=== PATIENT | male | born 1960 | race Caucasian/White ===

== ENCOUNTER → 2016-09-18 | Outpatient (CLI) | payer BC ==
[~2016-09-18] MED LIST: AMLODIPINE BESY10 MG PO; CIPRO PO; FLOMAX0.4 M1 PO; IBUPROFEN800 MG PO; LORTAB 5/500 TA1 TA1 PO; VIAGRA PO; ZOFRAN ODT4 MG PO
--- NOTE | ~2016-09-18 | CT71 ---
[facility] A Service of [facility] RADIOLOGY TEXT RESULTS PATIENT: IRVING ROSAS LOCATION: [facility] : 60 UNIT #: [id number] AGE: [address]: BLAISE VALDEZ MD SEX: M ORDER DR: [id number] [facility] [address] [place], [place] [address] [id number] O MR#: [id number] Acc #: [id number] NAME: IRVING ROSAS : 1960 SEX: M STUDY DATE/TIME: 09/18/2016 8:04 UNIT: [facility] ROOM: STUDY DESCRIPTION: CT Head Wo Contrast Attending Physician: Blaise Valdez M.D. Referring Physician: Blaise Valdez M.D. Ordering Physician: Blaise Valdez M.D. Primary Care Physician: Blaise Valdez M.D. MEDICAL IMAGING REPORT This report is preliminary unless electronic signature is present EXAM Head CT no contrast, 09/18/2016 HISTORY 6-day history of left facial and thumb numbness. PROCEDURE Axial unenhanced head CT. This CT exam was performed with one or more of the following radiation dose reduction techniques: automatic exposure control, adjustment of mA and/or kV according to patient size, and iterative reconstruction. COMPARISON None FINDINGS Axial noncontrast images were obtained from the skull base to the vertex. Ventricular size and configuration are normal. There is no evidence of acute infarct or hemorrhage. There are no extra-axial fluid collections. No mass lesion or mass effect is seen. There are no skull fractures. IMPRESSION Normal noncontrast head CT. Dictated by... William Randall M.D. THIS IS AN ELECTRONICALLY VERIFIED REPORT William Randall M.D. at 09/20/2016 1:22 PM ANDER/han TD: 09/18/2016 12:30 [facility] A Service of [facility] RADIOLOGY TEXT RESULTS PATIENT: IRVING ROSAS LOCATION: [facility] : 60 UNIT #: [id number] AGE: [address]: BLAISE VALDEZ MD SEX: M ORDER DR: JOB #: [id number] MEDICAL IMAGING REPORT Page 1 of 1 COPY
--- NOTE | ~2016-09-18 | US37 ---
[facility] A Service of [facility] RADIOLOGY TEXT RESULTS PATIENT: IRVING ROSAS LOCATION: [facility] : 60 UNIT #: [id number] AGE: [address]: BLAISE VALDEZ MD SEX: M ORDER DR: [id number] [facility] [address] [place], [place] [address] [id number] O MR#: [id number] Acc #: [id number] NAME: IRVING ROSAS : 1960 SEX: M STUDY DATE/TIME: 09/18/2016 8:35 UNIT: [facility] ROOM: STUDY DESCRIPTION: US Carotid W/Doppler Bilateral Attending Physician: Blaise Valdez M.D. Referring Physician: Blaise Valdez M.D. Ordering Physician: Blaise Valdez M.D. Primary Care Physician: Blaise Valdez M.D. MEDICAL IMAGING REPORT This report is preliminary unless electronic signature is present EXAM Bilateral carotid Doppler, 09/18/16 HISTORY Blurry vision. Numbness of the arms. FINDINGS Duplex imaging of the carotid arteries was performed. The right common carotid artery is patent. Internal and external carotid arteries are patent with no plaque noted. Velocity in the right common carotid is 81, internal is 47 and external is 63 cm per second. Right ICA/CCA ratio is 1.6. On the left side, the common carotid artery is patent. Internal and external carotid arteries are patent with no plaque. Velocity in the left common carotid is 81, internal is 36, and external is 60 cm per second. Left ICA/CCA ratio is 1.6. Antegrade flow is seen in the right and left vertebral arteries. IMPRESSION Normal carotid duplex exam with no stenosis or plaque in the right or left internal or external carotid arteries. Antegrade flow is seen in the right and left vertebral arteries. Dictated byDena Kruse M.D. THIS IS AN ELECTRONICALLY VERIFIED REPORT [facility] A Service of [facility] RADIOLOGY TEXT RESULTS PATIENT: IRVING ROSAS LOCATION: [facility] : 60 UNIT #: [id number] AGE: [address]: BLAISE VALDEZ MD SEX: M ORDER DR: Juve Kruse M.D. at 09/19/2016 2:59 PM Ellis TD: 09/18/2016 20:49 JOB #: [id number] MEDICAL IMAGING REPORT Page 1 of 1 COPY
== END | disposition home or self-care (01) ==
LOC: CCAT 07:24
DX: R20.8 Other disturbances of skin sensation (principal)
CPT/HCPCS: 70450; 93880